=== PATIENT | male | born 1990 | race Caucasian/White ===

== ENCOUNTER 2021-02-12 08:42 | Emergency (ER) | payer OTHER ==
--- NOTE | 2021-02-12 09:14 | XRAY Report ---
PROCEDURE: Chest 1 View X-Ray INDICATIONS: Chest Pain TECHNIQUE: One view of the chest was acquired. COMPARISON: FINDINGS: Surgical changes and devices: None. Lungs and pleura: No pleural effusions or pneumothorax. Lungs are clear. Mediastinum: Mediastinal contours appear normal. Heart size is normal. Bones and chest wall: No suspicious bony lesions. Overlying soft tissues appear unremarkable. IMPRESSION: Normal for age, source of current symptoms is not seen. Reviewed by: Mark Faith MD on 02/12/2021 9:13 AM PDT Approved by: Mark Faith MD on 02/12/2021 9:13 AM PDT Station ID: [id number]
[2021-02-12 09:30] LABS: BASOPHILS # (AUTO) 0.1 10^3/uL (0.0-0.1); BASOPHILS % (AUTO) 1.1 %; EOSINOPHILS # (AUTO) 0.2 10^3/uL (0.0-0.7); EOSINOPHILS % (AUTO) 4.2 %; HCT - HEMATOCRIT 46.8 % (42.0-52.0); HGB - HEMOGLOBIN 16.2 g/dL (14.0-18.0); LYMPHOCYTES # (AUTO) 1.8 10^3/uL (1.5-3.5); LYMPHOCYTES % (AUTO) 37.1 %; MEAN CORPUSCULAR HEMOGLOBIN 29.7 pg (27.0-31.0); MEAN CORPUSCULAR HGB CONC 34.6 g/dL (32.0-36.0); MEAN CORPUSCULAR VOLUME 85.7 fL (80.0-94.0); MEAN PLATELET VOLUME 9.2 fL (7.4-11.4); MONOCYTES # (AUTO) 0.6 10^3/uL (0.0-1.0); MONOCYTES % (AUTO) 12.2 %; NEUTROPHILS # (AUTO) 2.1 10^3/uL (1.5-6.6); NEUTROPHILS % (AUTO) 45.2 %; PLT - PLATELET COUNT 262 10^3/uL (130-450); RED BLOOD COUNT 5.46 10^6/uL (4.70-6.10); RED CELL DISTRIBUTION WIDTH 12.3 % (12.0-15.0); WHITE BLOOD COUNT 4.7 x10^3/uL (4.8-10.8)
[2021-02-12 09:44] LABS: ALBUMIN 4.8 g/dL (3.2-5.5); ALBUMIN/GLOBULIN RATIO 1.8 (1.0-2.2); BILIRUBIN,TOTAL 0.6 mg/dL (0.2-1.0); CALCIUM 9.7 mg/dL (8.5-10.3); POTASSIUM 3.8 mmol/L (3.5-5.0); TOTAL PROTEIN 7.5 g/dL (6.7-8.2)
--- NOTE | 2021-02-12 10:10 | ED Physician Documentation ---
PD HPI CHEST PAIN - Stated complaint Stated Complaint: CHEST DISCOMFORT - Chief complaint Chief Complaint: Cardiac - History obtained from History obtained from: Patient - Additional information Additional information: Comes emergency department for chief complaint of chest pain for approximately last 24 hours. Patient states that he has noticed a tight and sharp pain just to the left of his sternum. He states taking a deep breath makes it a little better. He denies any shortness of breath, lightheadedness, diaphoresis, or nausea. No fever chills or cough. 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 Patient states he is otherwise healthy. He states that his grandfathers both had MIs in their 50s to 60s but that there is nobody in the family with MIs at a young age. Patient denies any history of DVT that he knows of in his family, and he has no personal history of this. Patient denies a personal history of hypertension, diabetes, or smoking. No other complaints at this time. He states he has not had any dyspnea on exertion or any other episodes of chest pain like this. He states he just walked into the room after moving normally about the house when he noticed the pain. He does note he is been under a lot of stress lately. No other complaints at this time. Review of Systems Ten Systems: 10 systems reviewed and negative Constitutional: reports: Reviewed and negative Eyes: reports: Reviewed and negative Ears: reports: Reviewed and negative Nose: reports: Reviewed and negative Throat: reports: Reviewed and negative Cardiac: reports: Chest pain / pressure Respiratory: reports: Reviewed and negative GI: reports: Reviewed and negative : reports: Reviewed and negative Skin: reports: Reviewed and negative Musculoskeletal: reports: Reviewed and negative Neurologic: reports: Reviewed and negative Psychiatric: reports: Reviewed and negative Endocrine: reports: Reviewed and negative Immunocompromised: reports: Reviewed and negative PD PAST MEDICAL HISTORY - Past Medical History Past Medical History: No - Past Surgical History Past Surgical History: Yes - Present Medications Home Medications: Ambulatory Orders Medication Instructions Recorded Confirmed No Known Home Medications 02/12/21 02/12/21 - Allergies Allergies/Adverse Reactions: Allergies Allergy/AdvReac Type Severity Reaction Status Date / Time No Known Drug Allergies Allergy Verified 02/12/21 08:49 - Social History Does the pt smoke?: No Smoking Status: Never smoker Does the pt drink ETOH?: Yes Does the pt have substance abuse?: No - Immunizations Immunizations are current?: Yes - POLST Patient has POLST: No PD ED PE NORMAL - Vitals Vital signs reviewed: Yes - General General: Alert and oriented X 3, No acute distress - HEENT HEENT: Atraumatic, PERRL, EOMI, Moist mucous membranes - Neck Neck: Supple, no meningeal sign - Cardiac Cardiac: RRR, No murmur, Strong equal pulses, Other (Mild tenderness palpation immediately adjacent to the sternum on the left side at about ribs 4-6 level.) - Respiratory Respiratory: No respiratory distress, Clear bilaterally - Abdomen Abdomen: Soft, Non tender, Non distended - Derm Derm: Normal color, Warm and dry, No rash - Extremities Extremities: No deformity, No edema, No calf tenderness / cord - Neuro Neuro: Alert and oriented X 3 - Psych Psych: Normal mood, Normal affect Results - Vitals Vitals: Vital Signs - 24 hr 02/12/21 02/12/21 02/12/21 08:49 09:18 10:16 Temperature 36.8 C Heart Rate 86 74 72 Respiratory 16 18 17 Rate Blood Pressure 125/68 121/72 126/76 O2 Saturation 98 98 100 Oxygen O2 Source Room air - EKG (time done) 0854 Rate: Rate (enter#) (74) Rhythm: NSR [place]: Normal Intervals: Normal MA QRS: Normal Ischemia: ST elevation c/w repol. No: T wave inversion Compare to prior EKG: Old EKG unavailable Computer interpretation: Agree with computer - Labs Labs: Laboratory Tests 02/12/21 02/12/21 02/12/21 09:15 09:15 09:15 WBC 4.7 L RBC 5.46 Hgb 16.2 Hct 46.8 MCV 85.7 MCH 29.7 MCHC 34.6 RDW 12.3 Plt Count 262 MPV 9.2 Neut # (Auto) 2.1 Lymph # (Auto) 1.8 [place] # (Auto) 0.6 Eos # (Auto) 0.2 Baso # (Auto) 0.1 Absolute Nucleated RBC 0.00 Nucleated RBC % 0.0 Sodium 139 Potassium 3.8 Chloride 105 Carbon Dioxide 27 Anion Gap 7.0 BUN 15 Creatinine 1.0 Estimated GFR (MDRD) 88 L Glucose 114 H Calcium 9.7 Total Bilirubin 0.6 AST 20 ALT 19 Alkaline Phosphatase 42 Troponin I High Sens 2.9 Total Protein 7.5 Albumin 4.8 Globulin 2.7 Albumin/Globulin Ratio 1.8 Lipase 28 - Rads (name of study) CXR Radiology: Final report received, EMP read indepedently, See rad report (neg) PD MEDICAL DECISION MAKING - ED course Complexity details: reviewed results, re-evaluated patient, considered differential, d/w patient ED course: The patient's chest pain sounded most likely to be musculoskeletal in nature, and he was very well-appearing. Additionally, he was extremely low risk For both coronary artery disease and venous thrombus. This laboratory studies were unremarkable, as were his chest x-ray and EKG. We have discussed home management of the symptoms. Patient may followUp with his primary doctor for any further concerns. We have discussed the usual indications for return. Departure - Departure Disposition: 01 Home, Self Care Clinical Impression: Atypical chest pain Condition: Stable Instructions: ED Chest Pain Costochondritis Comments: Your labs, EKG, and chest x-ray all look good. There is no evidence of an emergent cause of your pain today. Please follow-up with your primary doctor. If you begin to develop severe pain that is accompanied by shortness of breath, nausea, lightheadedness, and/or facial sweating, please return to the emergency department immediately. Otherwise, you may carry on with your usual activities and use ibuprofen as needed to help the discomfort. Discharge Date/Time: 02/12/21 10:21
[2021-02-12 10:17] VITALS: BP 126/76
== END 2021-02-12 10:21 | disposition home or self-care (01) ==
LOC: ED 08:42
DX: R07.89 Other chest pain (principal); Z82.49 Family history of ischemic heart disease and other diseases of the circulatory system
CPT/HCPCS: 36415; 80053; 83690; 84484; 85025; 93005; 99284

== ENCOUNTER 2022-07-11 19:37 | Outpatient (CLI) | payer OTHER | END 2022-07-11 19:38 | disposition home or self-care (01) | LOC: SC 19:37 | PROVIDERS: ATTEND Nurse Practitioner Family | DX: R06.83 Snoring (principal); G47.8 Other sleep disorders; G47.10 Hypersomnia, unspecified; R53.83 Other fatigue | CPT/HCPCS: 95810 ==